=== PATIENT | male | born 1985 | race Hispanic/Latino ===

== ENCOUNTER 2022-07-26 07:00 | Day surgery (SDC) | payer OTHER ==
[2022-07-25 11:21] VITALS: BP 157/88
[~2022-07-26] VITALS: Ht 177.8 cm; Wt 95.3 kg
[2022-07-26] VITALS (15 sets, daily range): BP systolic 122–149; BP diastolic 62–100
[~2022-07-26 07:00] MED LIST: BACITRACIN 28.4 GM OINT TP ONE; BUPIVACAINE/PF 0.25% 30ML VIAL IJ ONE; BUPIVACAINE/PF 0.5% 30ML VIAL ONE
[2022-07-26] MEDS ORDERED: LACTATED RINGERS 1000ML 1,000 ML IV ONE (07:07)
[2022-07-26] MEDS: CEFAZOLIN SODIUM 1 GM VIAL IVP ONE ×2 (07:19→08:41)
[2022-07-26] MEDS ORDERED: LIDOCAINE HCL 1% 20 ML VIAL INJ SCH (07:30)
[2022-07-26] MEDS ORDERED: PROPOFOL 10 MG/ML 20ML VIAL IV ONE (07:31)
[2022-07-26] MEDS ORDERED: SUCCINYLCHOLINE 200MG/10ML SYR ONE (07:31)
[2022-07-26] MEDS ORDERED: GLYCOPYRROLATE 1 MG/5 ML SYRINGE ONE (07:31)
[2022-07-26] MEDS ORDERED: LIDOCAINE PF 100MG/5ML (2%) SYRINGE 5ML ONE (07:31)
[2022-07-26] MEDS ORDERED: NEOSTIGMINE 5MG/5ML SYR IV ONE (07:31)
[2022-07-26] MEDS ORDERED: DEXAMETHASONE SOD PHOSPHATE 10MG/ML 1ML VIAL ONE (07:31)
[2022-07-26] MEDS ORDERED: MIDAZOLAM HCL 1 MG/ML 2ML VIAL ONE (07:31)
[2022-07-26] MEDS ORDERED: ROCURONIUM 10MG/1ML SYR 10 MG/ML ML ONE (07:31)
[2022-07-26] MEDS ORDERED: ONDANSETRON 4MG INJ ONE (07:31)
[2022-07-26] MEDS ORDERED: FENTANYL CITRATE PF 50 MCG/1 ML 2ML VIAL ONE ×2 (07:32→08:46)
== END 2022-07-26 11:36 | disposition home or self-care (01) ==
LOC: DAH 07:00
PROVIDERS: ATTEND Urology
DX: Z30.2 Encounter for sterilization (principal)
CPT/HCPCS: 87426; 55250; J7120 ×2; J3010 ×2; J0690; J0330; J3490 ×2; J1100; J2710; J2001; J2250; J2704; J2405; A4215; A4223; A4222; A4221